=== PATIENT | male | born 1990 | race Caucasian/White ===

== ENCOUNTER 2024-06-14 03:36 | Emergency (ER) | payer OTHER, SELFPAY ==
--- NOTE | ~2024-06-14 | CT_ITS ---
EXAMINATION: CT ABDOMEN AND PELVIS WITHOUT CONTRAST CLINICAL INFORMATION: Right-sided abdominal pain with hematuria COMPARISON: None available. TECHNIQUE: Multidetector volumetric imaging was performed from the superior aspect of the liver through the pubic symphysis. Sagittal and coronal reformatted images were obtained on the technologist's workstation. This CT examination was performed using dose optimization techniques as appropriate, variously including the following: *Automated exposure control *Adjustment of mA and/or kV according to patient size (this includes techniques or standardized protocols for targeted exams where dose is matched to indication/reason for exam; i.e. extremities or head) *Use of iterative reconstruction technique DLP: 832 mGy-cm FINDINGS: LUNG BASES: The visualized lung bases are unremarkable. LIVER, GALLBLADDER, AND BILIARY TREE: Liver is of low bilateral low attenuation due to hepatic steatosis, enlarged, without intrahepatic masses or ductal dilatation seen. The gallbladder is unremarkable with no evidence of radiopaque gallstones, gallbladder wall thickening, or obvious pericholecystic inflammatory changes. PANCREAS: Unremarkable. SPLEEN: Unremarkable. ADRENAL GLANDS: Unremarkable. KIDNEYS AND URETERS: Left kidney is unremarkable. Right kidney revealed mild hydroureteronephrosis due to obstruction of the proximal right ureter by 0.5 cm stone BLADDER: Unremarkable. GASTROINTESTINAL TRACT: The small and large bowel are unremarkable. The appendix is unremarkable. ABDOMINAL WALL: There is small fat-containing umbilical hernia LYMPH NODES: Normal. VASCULAR: Unremarkable. PELVIC VISCERA: Unremarkable. 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 Obstructing 0.5 cm stone in the proximal right ureter with mild hydroureteronephrosis. 2. Hepatomegaly and hepatic steatosis. 3. 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 4. Small fat-containing umbilical hernia. Fleischner guidelines were followed. Electronically signed by: Love Triplett MD 06/14/2024 07:43 AM EDT
[2024-06-14 03:45] VITALS: BP 163/97; PULSE 73; RESP 24; O2SAT 100; BMI 40.0
--- NOTE | 2024-06-14 03:50 | ED_ITS ---
HPI - Abdominal Pain General Chief Complaint: Abdominal Pain Stated Complaint: severe side and abdominal pain Time Seen by Provider: 06/14/24 03:50 History of Present Illness ED Provider: Radha LINCOLN narrative: The patient is a 33-year-old male with no significant past medical history who says that he was awoken from sleep at around 02:00 by severe right-sided abdominal pain. This was associated with nausea and vomiting. He has never had pain like this before. He was quite sweaty. He was driven to the hospital. He is on no medications.No fever, sweats, chills. He says the pain does not radiate to his groin or his testicles. No dysuria, urgency, frequency. Related Data Previous Rx's ?Medication ?Instructions ?Recorded ibuprofen 600 mg tablet 600 mg PO Q6H PRN pain #14 tabs 06/14/24 morphine 15 mg immediate release 15 mg PO Q4-6H PRN pain #10 tabs 06/14/24 tablet ondansetron 4 mg disintegrating 4 mg PO Q6H PRN nausea and 06/14/24 tablet vomiting #10 tabs tamsulosin 0.4 mg capsule 0.4 mg PO BEDTIME #5 caps 06/14/24 Allergies Allergy/AdvReac Type Severity Reaction Status Date / Time No Known Allergies Allergy Verified 06/14/24 03:48 [No Known Allergies*] Review of Systems Review of Systems Yes all other systems are reviewed and are negative [facility] Social History Social History Alcohol intake: current Smoked in Last 30 Days: No Use of substances other than those prescribed or required for medical reasons: No Advance Directives: No Advance Directives Information Provided: Yes Do you have a plan to hurt others: No Plan Physical Exam ED Vital Signs: Vital Signs - 24 hr 06/14/24 03:45 06/14/24 05:29 06/14/24 06:54 Temperature 98.2 F 97.6 F Pulse Rate 73 75 73 Respiratory Rate 24 H 18 18 Blood Pressure 163/97 H 109/68 118/70 Pulse Oximetry 100 97 98 Oxygen Delivery Method Room Air Room Air Room Air 06/14/24 08:36 Temperature 97.6 F Pulse Rate 73 Respiratory Rate 18 Blood Pressure 118/70 Pulse Oximetry 98 Oxygen Delivery Method Room Air BMI result Body Mass Index 40.0 Const Other: The patient is a large 33-year-old male who was awake and alert and looks very uncomfortable. He was diaphoretic. He was pleasant cooperative. [facility] Head: Yes normal to inspection Face and sinus: Yes normal facial exam Mouth: Normal oral and palatal mucosa present and moist mucous membranes Eyes General: appearance normal, both eyes and all related structures Neck Neck: Yes full ROM Resp Effort & Inspection: normal respiratory effort Auscultation: clear to auscultation bilaterally Cardio Rate: regular rate Rhythm: regular rhythm Heart sounds: S1 normal heart sound present and S2 normal heart sound present GI Other: Patient seemed to have some tenderness with my attempt at manual palpation of the right kidney. However with direct palpation of the abdomen there really was not any frontal abdominal tenderness. No Michel sign. Back/Spine/Pelvis Other: The patient did not seem to have any right-sided CVA percussion tenderness, nor any left-sided. Skin Other: The patient was diaphoretic. Skin otherwise normal. Neuro Other: The patient was awake and alert with normal mental status. Cranial nerves are grossly intact. He moves his extremities normally and appropriately. Extrem Other: No peripheral edema, no calf swelling or tenderness, no asymmetry. Medical Decision Making Medical Decision Making [facility] Narrative: The patient is and ordinarily healthy 33-year-old who awoke at 02:00 with severe right-sided pain associated with diaphoresis. He looked uncomfortable was given pain medication promptly. His urinalysis showed microscopic hematuria. His overall presentation seemed potentially consistent with right- sided ureteral colic. a CT scan of the abdomen and pelvis without contrast shows a 5 mm proximal ureteral stone. The patient had 1st received morphine with some relief. He was later given ketorolac with complete resolution of his discomfort. I spoke to him about the nature of ureteral stones and their management. I explained that a 5 mm stone will often pass without a urology procedure. The patient will therefore be discharged with prescriptions for ibuprofen, ondansetron, morphine immediate release tablets, and tamsulosin. He should follow-up with urology. Return if worse. Lab Data 06/14/24 04:02 06/14/24 04:02 Labs: Lab Results 06/14/24 06/14/24 Range/Units 04:02 05:28 WBC 9.8 (4.8-10.8) X10*3/uL RBC 5.24 (4.60-5.80) X10*6/uL Hgb 16.2 (14.0-18.0) g/dl Hct 45.4 (42.0-52.0) % MCV 86.6 (80.0-98.0) fL MCH 30.9 (27.0-33.0) pg MCHC 35.7 (31.0-36.0) g/dl RDW 12.9 (11.0-16.0) % Plt Count 308 (160-400) X10*3/uL MPV 9.0 L (9.4-12.4) fL Immature Gran % (Auto) 0.4 (0.0-0.4) % Neut % (Auto) 54.3 (45-73) % Lymph % (Auto) 34.7 (20-40) % [place] % (Auto) 8.4 (2-11) % Eos % (Auto) 1.5 (0-4) % Baso % (Auto) 0.7 (0-2) % Lymph # (Auto) 3.4 (1.2-4.9) X10*3/uL [place] # (Auto) 0.8 (0.1-1.2) X10*3/uL Eos # (Auto) 0.2 (0.0-0.4) X10*3/uL Baso # (Auto) 0.1 (0.0-0.2) X10*3/uL Abs Immat Gran (auto) 0.04 H (0.00-0.03) X10*3/uL Absolute Neuts (auto) 5.3 (2.0-8.3) x10*3/uL Absolute Nucleated RBC 0.000 (0.0-0.012) X10*3/uL Nucleated RBC % (auto) 0.0 (0.0-0.2) /100WBC Sodium 141 (135-145) mmol/L Potassium 3.5 (3.3-5.1) mmol/L Chloride 103 (96-108) mmol/L Carbon Dioxide 24 (22-29) mmol/L Anion Gap 18 (12-20) BUN 15 (9-16) mg/dL Creatinine 1.34 (0.5-1.4) mg/dL Estim Creat Clear Calc 103.7 Estimated GFR > 60 Random Glucose 168 H (60-115) mg/dL Calcium 9.7 (8.4-10.2) mg/dL Magnesium 2.2 (1.6-2.6) mg/dL Total Bilirubin 0.2 (0.0-1.0) mg/dL Direct Bilirubin < 0.2 (0.0-0.5) mg/dL AST 55 H (5-37) U/L ALT 130 H (0-40) U/L Alkaline Phosphatase 84 (39-117) U/L C-Reactive Protein 0.60 H (< or = 0.50) mg/dL Total Protein 7.7 (6.5-8.0) g/dL Albumin 4.7 (3.5-5.0) g/dL Lipase 17 (8-78) U/L Urine Color Yellow Urine Appearance Clear Urine pH 5.5 (5.0-9.0) Ur Specific [place] 1.015 (1.005-1.025) Urine Protein 30 (1+) H (Neg-Trace) mg/dL Urine Glucose (UA) 100 H (Negative) mg/dL Urine Ketones Negative (Negative) mg/dL Urine Blood Large (3+) H (Negative) Urine Nitrite Negative (Negative) Ur Leukocyte Esterase Negative (Negative) Urine RBC >20 H (0-2) /HPF Urine WBC 0-5 (0-5) /HPF Ur Squamous Epith Cells 0-2 (0-2) /HPF Urine Bacteria None Seen (None Seen) Hyaline Casts 3-5 (0-2) /LPF Ethyl Alcohol < 10 mg/dL Medications Administered Discontinued Medications Generic Name Dose Route Start Last Admin Trade Name Omarq PRN Reason Stop Dose Admin Droperidol 1.25 mg 06/14/24 03:56 06/14/24 04:04 Droperidol 5 Mg/2 Ml Vial IVPUSH 06/14/24 03:57 1.25 mg ONCE ONE Administration Sodium Chloride 1,000 mls @ 999 mls/hr 06/14/24 04:00 06/14/24 05:30 Ns IV 06/14/24 05:00 Infused .Q1H1M SHAUN Infusion Ketorolac Tromethamine 15 mg 06/14/24 06:23 06/14/24 06:28 Ketorolac Tromethamine 15 Mg/Ml Vial IVPUSH 06/14/24 06:24 15 mg ONCE ONE Administration Morphine Sulfate 4 mg 06/14/24 03:56 06/14/24 04:05 Morphine Sulfate 4 Mg/Ml Cartridge IVPUSH 06/14/24 03:57 4 mg ONCE ONE Administration Protocol Tamsulosin HCl 0.4 mg 06/14/24 06:48 06/14/24 06:54 Tamsulosin Hcl 0.4 Mg Capsule PO 06/14/24 06:49 0.4 mg ONCE ONE Administration Discharge Plan Discharge Clinical Impression: Ureteral colic, Calculus of proximal right ureter Patient Disposition: Home, Self-Care Instructions: Ureteral Stones (ED) Additional Instructions: You have a 5 mm stone in your right proximal ureter. At this point the plan will be to try to manage your symptoms at home until the stone passes into your bladder on its own. For pain you may take 2 extra-strength acetaminophen (Tylenol) up to 3 times per day. Additionally you may use the prescribed ibuprofen every 6 hours as needed for pain. There is also a prescription for morphine tablets that you may take every 4-6 hours if necessary in addition to the other medications. If you experience nausea you may use the prescribed ondansetron. Also take tamsulosin at bedtime. This may help relax the ureter to allow the stone to progress down the ureter. Please contact the urology office for a follow up appointment. Return to the emergency room if significantly worse. Prescriptions: New ibuprofen 600 mg tablet 600 mg PO Q6H PRN (Reason: pain) Qty: 14 0RF ondansetron 4 mg tablet,disintegrating 4 mg PO Q6H PRN (Reason: nausea and vomiting) Qty: 10 0RF tamsulosin 0.4 mg capsule 0.4 mg PO BEDTIME Qty: 5 0RF morphine 15 mg tablet 15 mg PO Q4-6H PRN (Reason: pain) Qty: 10 0RF Rx Instructions: Partial Fill upon patient request. Referrals: [facility] [Provider Group] (First-time right ureteral stone) Interventions: ED Discharge Assessment Last Done: 06/14/24 08:36 Discharge Date/Time: 06/14/24 08:37 Print Language: Georgian
--- NOTE | 2024-06-14 03:56 | ECG_ITS ---
Test Reason : ABD PAIN Blood Pressure : / mmHG Vent. Rate : 071 BPM Atrial Rate : 071 BPM P-R Int : 150 ms QRS Dur : 084 ms QT Int : 394 ms P-R-T Axes : 041 006 005 degrees QTc Int : 428 ms Normal sinus rhythm Normal ECG No previous ECGs available Referred By: Sarbjit Garcia Electronically Signed By:ARLIN TRACY
[2024-06-14] MEDS: droPERidol 5 MG/2 ML VIAL 1.25 MG IVPUSH (04:04)
[2024-06-14] MEDS: Morphine Sulfate 4 MG/ML CARTRIDGE IVPUSH (04:05)
[2024-06-14 04:06] LABS: Basophils Absolute Auto 0.1 X10*3/uL (0.0-0.2); Basophils Percent Auto 0.7 % (0-2); Eosinophils Absolute Auto 0.2 X10*3/uL (0.0-0.4); Eosinophils Percent Auto 1.5 % (0-4); Hematocrit 45.4 % (42.0-52.0); Hemoglobin 16.2 g/dl (14.0-18.0); Imm Gran Abs Auto 0.04 X10*3/uL (0.00-0.03); Imm Gran Pct Auto 0.4 % (0.0-0.4); Lymphocytes Absolute Auto 3.4 X10*3/uL (1.2-4.9); Lymphocytes Percent Auto 34.7 % (20-40); MANUAL DIFF FLAG NO; Mean Corpuscular HGB Conc 35.7 g/dl (31.0-36.0); Mean Corpuscular Hemoglobin 30.9 pg (27.0-33.0); Mean Corpuscular Volume 86.6 fL (80.0-98.0); Monocytes Absolute Auto 0.8 X10*3/uL (0.1-1.2); Monocytes Percent Auto 8.4 % (2-11); Neutrophils Absolute Auto 5.3 x10*3/uL (2.0-8.3); Neutrophils Percent Auto 54.3 % (45-73); Platelet Count 308 X10*3/uL (160-400); Red Blood Count 5.24 X10*6/uL (4.60-5.80); Red Cell Distribution Width 12.9 % (11.0-16.0); White Blood Count 9.8 X10*3/uL (4.8-10.8)
[2024-06-14] MEDS: 0.9 % Sodium Chloride 1,000 ML 999 ML IV (04:08)
[2024-06-14 04:22] LABS: Alanine Aminotransferase 130 U/L (0-40); Albumin Level 4.7 g/dL (3.5-5.0); Alkaline Phosphatase 84 U/L (39-117); Anion Gap 18 (12-20); Aspartate Amino Transferase 55 U/L (5-37); Bilirubin Direct < 0.2 mg/dL (0.0-0.5); Bilirubin Total 0.2 mg/dL (0.0-1.0); Blood Urea Nitrogen 15 mg/dL (9-16); Calcium 9.7 mg/dL (8.4-10.2); Carbon Dioxide 24 mmol/L (22-29); Chloride 103 mmol/L (96-108); Creatinine Clr Calc Pharmacy 103.7; Estimated Glomerular Filt Rate > 60; Ethanol < 10 mg/dL; Glucose Random 168 mg/dL (60-115); Lipase 17 U/L (8-78); Magnesium 2.2 mg/dL (1.6-2.6); Potassium 3.5 mmol/L (3.3-5.1); Sodium 141 mmol/L (135-145); Total Protein 7.7 g/dL (6.5-8.0)
[2024-06-14 05:29] VITALS: BP 109/68; PULSE 75; RESP 18; TEMP 36.8; O2SAT 97
[2024-06-14 05:38] LABS: Appearance Urine Clear; Color Urine Yellow; Glucose Urine UA 100 mg/dL (Negative); Leukocyte Esterase Urine Negative (Negative); Nitrite Urine Negative (Negative); PH 5.5 (5.0-9.0); Specific Gravity - Urine 1.015 (1.005-1.025); UMIC TRIGGER UACC YES; Urine Blood Large (3+) (Negative); Urine Ketones Negative (Negative); Urine Protein 30 (1+) mg/dL (Neg-Trace)
[2024-06-14 05:59] LABS: Bacteria Urine None Seen (None Seen); RBC Urine >20 /HPF (0-2); Squamous Epithelial Cell Urine 0-2 /HPF (0-2); WBC Urine 0-5 /HPF (0-5)
[2024-06-14] MEDS: Ketorolac Tromethamine 15 MG/ML VIAL IVPUSH (06:28)
[2024-06-14 06:54] VITALS: BP 118/70; PULSE 73; RESP 18; TEMP 36.4; O2SAT 98
[2024-06-14] MEDS: Tamsulosin HCL 0.4 MG CAPSULE PO (06:54)
[2024-06-14 08:36] VITALS: BP 118/70; PULSE 73; RESP 18; TEMP 36.4; O2SAT 98
== END 2024-06-14 08:37 | disposition home or self-care (01) ==
PROVIDERS: Emergency Provider Emergency Medicine
DX: N20.1 Calculus of ureter (principal); R10.2 Pelvic and perineal pain; R11.2 Nausea with vomiting, unspecified; R07.89 Other chest pain; Z51.81 Encounter for therapeutic drug level monitoring; Z79.899 Other long term (current) drug therapy
CPT/HCPCS: 36415; 74176; 80048; 80076; 80307; 81001; 83690; 83735; 85025; 86140; 93005; 96361; 96374; 96375; 99284; 99285; J1790; J1885; J2270

== ENCOUNTER → 2024-06-14 03:56 | Outpatient (BNV) | payer OTHER, SELFPAY | PROVIDERS: Emergency Provider Emergency Medicine; Visit Provider Internal Medicine | DX: R10.9 Unspecified abdominal pain (principal) | CPT/HCPCS: 93010 ==